=== PATIENT | male | born 1985 | race Hispanic/Latino ===

== ENCOUNTER 2021-03-26 01:24 | Emergency (ER) | payer OTHER ==
--- OUTSIDE RECORDS SUMMARY | 2021-03-26 01:27 | XMS REPORT | Continuity of Care Document ---
:1985 Author Organization [facility] t Address [address] [place] [address] Care Team Providers Name Role Phone Unavailable Unavailable Unavailable Problems This patient has no known problems. Allergies, Adverse Reactions, Alerts Allergy Allergy Status Severity Reaction(s) Onset Inactive Treating Comm ents Source Name Type Date Date Clinician penicill Adverse Active Info Not [facility] Reaction Available [facility] ent Clinics Medications Ordered Filled Start Stop Current Ordering Indication Dosage Frequency Signature Comments Components Source Medication Medication Date Date Medication? Clinician (SIG) Name Name Chantix Chantix 2018-08 2020- No Nelson [address] [facility] Continuing Continuing 09-29 Blake L ukes - Month Kapil Month Kapil 00:00: 00:00 Me moria 00 :00 l [facility] Multivitami Multivitami Yes Nelson as [facility] Adult n Adult Blake directed [place] [facility] ent Clinics Procedures This patient has no known procedures. Encounters Start End Encounter Admission Attending Care Care Encounter Source Date/Time Date/Time Type Type Clinicians Facility Department ID 2020-12-20 2020-12-20 Outpatient [facility] [id number] [facility] 2019-10-28 2019-10-28 [facility] [id number] [facility] 09:45:00 09:45:00 t [facility] Medicine Medicine [facility] 2019-07-29 2019-07-29 [facility] [id number] [facility] 17[facility]18:00 17:18:00 t [facility] 2019-07-29 2019-07-29 Outpatient Bere Polo [id number] [facility] 15:00:00 15:00:00 t [facility] Clin[facility] Results This patient has no known results.
[2021-03-26 02:25] LABS: Absolute Lymphocytes (CBC) 3.5 K/uL (0.7-4.9); Basophils % 0.9 % (0-1.3); Hematocrit 44.6 % (39.6-49.0); Lymphocytes % 31.1 % (15.3-44.8); MPV 9.2 fL (7.6-11.3); RBC Red Blood Cell Count 5.16 M/uL (4.33-5.43)
[2021-03-26 02:33] LABS: ALT/SGPT 40 U/L (12-78); AST/SGOT 21 U/L (15-37); Albumin 4.5 g/dL (3.4-5.0); Alkaline Phosphatase 111 U/L (45-117); BUN Blood Urea Nitrogen 15 mg/dL (7-18); Bicarbonate 28 mmol/L (21-32); Bilirubin Direct < 0.1 mg/dL (0-0.2); Bilirubin Total 0.3 mg/dL (0.2-1.0); Glucose Level 105 mg/dL (74-106); Lipase 125 U/L (73-393); Sodium Level 140 mmol/L (136-145)
[2021-03-26] MEDS ORDERED: NA CHLORIDE 0.9% 1,000 ML ONE (02:37)
[2021-03-26] MEDS ORDERED: KETOROLAC 30 MG/ML INJ ONE (02:37)
[2021-03-26 03:22] LABS: Urine Blood 2+ (Negative); Urine Glucose Negative (Negative); Urine Protein Negative (Negative)
--- NOTE | 2021-03-26 03:33 | ER ---
Nurse's Notes [facility] Name: Marcellus Vizcaino Jr Age: 35 yrs Sex: Male : 1985 Arrival Date: 03/26/2021 Time: 01:29 Bed 6 Private MD: Diagnosis: 4 mm stone at the left UVJ with mild hydroureteronephrosis. Presentation: 03/26 02:10 Chief complaint: Patient states: Reports pain to left flank that started today, ea reported he is feeling nauseous denies vomiting or diarrhea. Coronavirus screen: At this time, the client does not indicate any symptoms associated with coronavirus-19. Ebola Screen: No symptoms or risks identified at this time. Initial Sepsis Screen: Does the patient meet any 2 criteria? No. Patient's initial sepsis screen is negative. Does the patient have a suspected source of infection? No. Patient's initial sepsis screen is negative. Risk Assessment: Do you want to hurt yourself or someone else? Patient reports no desire to harm self or others. 02:10 Acuity: SUE 3 ea 02:10 Method Of Arrival: Ambulatory ea Historical: - Allergies: 02:11 PENICILLINS; ea - Home Meds: 02:11 None [Active]; ea - PSHx: 02:11 None; ea - Immunization history:: Adult Immunizations up to date. - Social history:: Smoking status: Patient reports the use of cigarette tobacco products, smokes one pack cigarettes per day. Screenin:10 Abuse screen: Denies threats or abuse. Nutritional screening:. Tuberculosis screening: ea No symptoms or risk factors identified. Fall Risk None identified. Assessment: 02:12 General: Appears in no apparent distress. Behavior is calm, cooperative, appropriate ea for age. Pain: Complains of pain in left flank pain. Neuro: Level of Consciousness is awake, alert, obeys commands, Oriented to person, place, time. Cardiovascular: Patient's skin is warm and dry. Respiratory: Airway is patent Respiratory effort is even, unlabored, Respiratory pattern is regular, symmetrical. Derm: Skin is pink, warm \T\ dry. 03:34 Reassessment: Patient and/or family updated on plan of care and expected duration. Pain ea level reassessed. Patient is alert, oriented x 3, equal unlabored respirations, skin warm/dry/pink. Discharge instruction given to patient verbalized the understanding of instruction. Vital Signs: 02:10 BP 143 / 93; Pulse 47; Resp 18; Temp 97.7; Pulse Ox 99% ; Weight 89.81 kg; Height 5 ft. ea 7 in. (170.18 cm); 03:35 BP 133 / 88; Pulse 48; Resp 16; Pulse Ox 98% on R/A; ea 02:10 Body Mass Index 31.01 (89.81 kg, 170.18 cm) ea ED Course: 01:29 Patient arrived in ED. wm 01:58 Eliezer Beauchamp MD is Attending Physician. pkl 01:59 Jo-Ann Casas RN is Primary Nurse. ea 02:10 Inserted saline lock: 20 gauge in right antecubital area, using aseptic technique. ea Blood collected. 02:11 Triage completed. ea 02:12 Arm band placed on right wrist. Patient placed in an exam room, on a stretcher, on ea pulse oximetry. 02:12 Patient has correct armband on for positive identification. Bed in low position. Call ea light in reach. Side rails up X2. 02:32 CT Stone Protocol In Process Unspecified. EDMS 03:30 Francisco J Gonzalez MD is Referral Physician. pkl 03:35 No provider procedures requiring assistance completed. IV discontinued, intact, ea bleeding controlled, No redness/swelling at site. Pressure dressing applied. Administered Medications: 02:18 Drug: TORadol (ketorolac) 30 mg Route: IVP; Site: right antecubital; ea 03:36 Follow up: Response: No adverse reaction ea 02:19 Drug: NS 0.9% 1000 ml Route: IV; Rate: 1000 ml; Site: right antecubital; ea 03:36 Follow up: IV Status: Completed infusion; IV Intake: 1000ml ea Intake: 03:36 IV: 1000ml; Total: 1000ml. ea Outcome: 03:32 Discharge ordered by . pkl 03:35 Discharged to home ambulatory, with family. ea 03:35 Condition: stable 03:35 Discharge instructions given to patient, Instructed on discharge instructions, follow up and referral plans. medication usage, Demonstrated understanding of instructions, follow-up care, medications. 03:43 Patient left the ED. ea Signatures: Dispatcher [employer] EDWA Eliezer Beauchamp MD MD pkJo-Ann Atkinson, RN RN Roxanne Lopez
--- NOTE | 2021-03-26 03:33 | EDPHYS ---
Physician Documentation [facility] Name: Marcellus Vizcaino Jr Age: 35 yrs Sex: Male : 1985 Arrival Date: 03/26/2021 Time: 01:29 Bed 6 Private MD: ED Physician Eliezer Beauchamp HPI: 03/26 02:20 This 35 yrs old Male presents to ER via Ambulatory with complaints of Low Back pkl Pain - LEFT. 02:20 The patient complains of pain in the left flank. The pain radiates to the left groin. pkl Onset: The symptoms/episode began/occurred yesterday. Associated signs and symptoms: The patient has no apparent associated signs or symptoms. Historical: - Allergies: 02:11 PENICILLINS; ea - Home Meds: 02:11 None [Active]; ea - PSHx: 02:11 None; ea - Immunization history:: Adult Immunizations up to date. - Social history:: Smoking status: Patient reports the use of cigarette tobacco products, smokes one pack cigarettes per day. ROS: 02:20 Eyes: Negative for injury, pain, redness, and discharge, ENT: Negative for injury, pkl pain, and discharge, Neck: Negative for injury, pain, and swelling, Cardiovascular: Negative for chest pain, palpitations, and edema, Respiratory: Negative for shortness of breath, cough, wheezing, and pleuritic chest pain, Abdomen/GI: Negative for abdominal pain, nausea, vomiting, diarrhea, and constipation. 02:20 Back: Positive for flank pain, on the left. 02:20 : Negative for urinary symptoms. 02:20 MS/extremity: Negative for acute changes. 02:20 Skin: Negative for rash. 02:20 Neuro: Negative for altered mental status, loss of consciousness. Exam: 02:20 Head/Face: Normocephalic, atraumatic. Eyes: Pupils equal round and reactive to light, pkl extra-ocular motions intact. Lids and lashes normal. Conjunctiva and sclera are non-icteric and not injected. Cornea within normal limits. Periorbital areas with no swelling, redness, or edema. ENT: Nares patent. No nasal discharge, no septal abnormalities noted. Tympanic membranes are normal and external auditory canals are clear. Oropharynx with no redness, swelling, or masses, exudates, or evidence of obstruction, uvula midline. Mucous membranes moist. Neck: Trachea midline, no thyromegaly or masses palpated, and no cervical lymphadenopathy. Supple, full range of motion without nuchal rigidity, or vertebral point tenderness. No Meningismus. Chest/axilla: Normal chest wall appearance and motion. Nontender with no deformity. No lesions are appreciated. Cardiovascular: Regular rate and rhythm with a normal S1 and S2. No gallops, murmurs, or rubs. Normal PMI, no JVD. No pulse deficits. Respiratory: Lungs have equal breath sounds bilaterally, clear to auscultation and percussion. No rales, rhonchi or wheezes noted. No increased work of breathing, no retractions or nasal flaring. Abdomen/GI: Soft, non-tender, with normal bowel sounds. No distension or tympany. No guarding or rebound. No evidence of tenderness throughout. 02:20 Back: pain, that is moderate, of the left flank. 02:20 : Exam negative for acute changes. 02:20 Musculoskeletal/extremity: Exam is negative for acute changes. 02:20 Skin: Exam negative for rash. 02:20 Neuro: Orientation: is normal, Mentation: is normal, Cranial nerves: grossly normal, Motor: is normal. Vital Signs: 02:10 BP 143 / 93; Pulse 47; Resp 18; Temp 97.7; Pulse Ox 99% ; Weight 89.81 kg; Height 5 ft. ea 7 in. (170.18 cm); 03:35 BP 133 / 88; Pulse 48; Resp 16; Pulse Ox 98% on R/A; ea 02:10 Body Mass Index 31.01 (89.81 kg, 170.18 cm) ea MDM: 01:58 Patient medically screened. pkl 03:26 Data reviewed: vital signs, nurses notes, lab test result(s), radiologic studies, CT pkl scan. ED course: Patient feeling better. Discussed lab and CT Scan result with patient. Advised to follow up with Urologist Dr. Gonzalez ) next week if not better. Patient understood instructions. 03/26 02:00 Order name: Basic Metabolic Panel; Complete Time: 02:41 ea 03/26 02:00 Order name: CBC with Diff; Complete Time: 02:41 ea 03/26 02:00 Order name: Hepatic Function; Complete Time: 02:41 ea 03/26 02:00 Order name: Lipase; Complete Time: 02:41 ea 03/26 02:14 Order name: CT Stone Protocol pkl 03/26 03:22 Order name: Urine Dipstick-Ancillary; Complete Time: 03:35 EDMS 03/26 02:00 Order name: IV Saline Lock; Complete Time: 02:13 ea 03/26 02:00 Order name: Labs collected and sent; Complete Time: 02:13 ea Administered Medications: 02:18 Drug: TORadol (ketorolac) 30 mg Route: IVP; Site: right antecubital; ea 03:36 Follow up: Response: No adverse reaction ea 02:19 Drug: NS 0.9% 1000 ml Route: IV; Rate: 1000 ml; Site: right antecubital; ea 03:36 Follow up: IV Status: Completed infusion; IV Intake: 1000ml ea Disposition Summary: 03/26/21 03:32 Discharge Ordered Location: Home pkl Problem: new pkl Symptoms: have improved pkl Condition: Stable pkl Diagnosis - 4 mm stone at the left UVJ with mild hydroureteronephrosis. pkl Followup: pkl - With: Francisco J Gonzalez MD - When: 2 - 3 days - Reason: Re-evaluation by your physician Discharge Instructions: - Discharge Summary Sheet pkl Forms: - Medication Reconciliation Form pkl - Thank You Letter pkl - Antibiotic Education pkl - Prescription Opioid Use pkl Prescriptions: - Flomax 0.4 mg Oral capsule - take 1 capsule by ORAL route once daily 1/2 hour following the same meal each pkl day; 15 capsule; Refills: 0, Product Selection Permitted - Tramadol 50 mg Oral Tablet - take 1 tablet by ORAL route every 8 hours as needed; 15 tablet; Refills: 0, pkl Product Selection Permitted Signatures: Dispatcher [employer] Eliezer Duff MD MD pkl Jo-Ann Casas, RN RN ea
[2021-03-26 03:52] VITALS: TEMP 97.7
[2021-03-26 03:53] VITALS: BP 133/88; O2SAT 98
--- NOTE | 2021-03-26 22:07 | RAD REPORT ---
EXAM DESCRIPTION: CT - Stone Protocol - 03/26/2021 6:24 am CLINICAL HISTORY: The patient is 35 years old and is Male; left flank pain TECHNIQUE: Axial computed tomography images of the abdomen and pelvis without intravenous contrast. Sagittal and coronal reformatted images were created and reviewed. This CT exam was performed usi ng one or more of the following dose reduction techniques: automated exposure control, adjustment o f the mA and/or kV according to patient size, and/or use of iterative reconstruction technique. COMPARISON: No relevant prior studies available. FINDINGS: Lung bases: Unremarkable. No mass. No consolidation. ABDOMEN: Liver: Unremarkable. Gallbladder and bile ducts: Gallbladder is contracted. No calcified stones. No ductal dilation. Pancreas: Unremarkable. No ductal dilation. Spleen: Unremarkable. No splenomegaly. Adrenals: Unremarkable. No mass. Kidneys and ureters: 4 mm stone at the left UVJ. Mild left hydroureteronephrosis. Mild left periu reteral stranding. Stomach and bowel: Unremarkable. No obstruction. No mucosal thickening. PELVIS: Appendix: No findings to suggest acute appendicitis. Bladder: Unremarkable. No stones. Reproductive: Unremarkable as visualized. ABDOMEN and PELVIS: Intraperitoneal space: Unremarkable. No free air. No significant fluid collection. Bones/joints: No acute fracture. No dislocation. Soft tissues: Unremarkable. Vasculature: Unremarkable. No abdominal aortic aneurysm. Lymph nodes: Unremarkable. No enlarged lymph nodes. IMPRESSION: 4 mm stone at the left UVJ. Mild left hydroureteronephrosis. Mild left periureteral stra nding. Electronically signed by: Marcellus Emmanuel MD 03/26/2021 3:00 AM CDT Due to temporary technical issues with the PACS/Fluency reporting system, reports are being signed by the in house radiologists without review as a courtesy to insure prompt reporting. The interpreting radiologist is fully responsible for the content of the report.
== END 2021-03-26 03:43 | disposition home or self-care (01) ==
LOC: ER 01:24
DX: N13.2 Hydronephrosis with renal and ureteral calculous obstruction (principal); F17.210 Nicotine dependence, cigarettes, uncomplicated; Z88.0 Allergy status to penicillin
CPT/HCPCS: 96361; 85025; 80048; 36415; 80076; 81003; 83690; 76377; 74176; 96374; 99284; J7030